=== PATIENT | male | born 1975 | race Caucasian/White ===

== ENCOUNTER 2022-02-10 16:54 | Emergency (ER) | payer MEDICARE ==
[2022-02-10 17:13] VITALS: BP 147/87
[2022-02-10] MEDS ORDERED: LIDOCAINE 2% 10 ML MDV SUBQ ONE (17:51)
[2022-02-10] MEDS ORDERED: lidocaine 1% 20 ML MDV ONE (18:09)
[2022-02-10] MEDS ORDERED: BACITRACIN ZINC OINT 1 PACKET TOP STA (18:24)
[2022-02-10] MEDS ORDERED: TETANUS/DIPHTHERIA/PERTUSSIS 0.5 ML SYRINGE IM ONE (18:25)
--- NOTE | 2022-02-10 18:26 | ED Physician Documentation ---
PD HPI UPPER EXT INJURY - Stated complaint Stated Complaint: L INDEX FINGER LAC - Chief complaint Chief Complaint: Laceration - History obtained from History obtained from: Patient - History of Present Illness Location: Left, Finger (Index) Type of injury: Laceration Where injury occurred: Home Timing - onset: Today Pain level max: 3 Pain level now: 2 Associated symptoms: No: Weakness, Numbness, Tingling, Swelling, Discolored Contributing factors: No: Anticoagulated - Additonal information Additional information: 46-year-old male with a left index finger laceration on a homemade knife. unknown last tetanus. Patient is right-handed. Nothing makes it better or worse. The laceration is to the pad of the index finger. Patient is not on blood thinners. No numbness or tingling. Review of Systems Constitutional: denies: Fever PD PAST MEDICAL HISTORY - Past Medical History Past Medical History: Yes Cardiovascular: High cholesterol - Past Surgical History Past Surgical History: Yes Ortho: Arthroscopic surgery - Present Medications Home Medications: Ambulatory Orders Medication Instructions Recorded Confirmed Cephalexin [Keflex] 500 mg PO Q6HR 10 Days capsule 02/16/15 oxyCODONE/ACET 5/325 [Percocet 5 1 each PO Q4-6H PRN #1 tablet 02/16/15 mg/325 mg] - Allergies Allergies/Adverse Reactions: Allergies Allergy/AdvReac Type Severity Reaction Status Date / Time Penicillins Allergy Anaphylaxis Verified 02/16/15 18:35 - Social History Does the pt smoke?: Yes Smoking Status: Current every day smoker Does the pt drink ETOH?: Yes Does the pt have substance abuse?: No - Immunizations Immunizations are current?: Yes - POLST Patient has POLST: No PD ED PE NORMAL - Vitals Vital signs reviewed: Yes - General General: Alert and oriented X 3, No acute distress - HEENT HEENT: Moist mucous membranes - Neck Neck: Supple, no meningeal sign - Derm Derm: Warm and dry - Extremities Extremities: Other (L index finger - 1.5cm L shaped laceration to pad of finger. NVI. ) - Neuro Neuro: Alert and oriented X 3 - Psych Psych: Normal mood, Normal affect Results - Vitals Vitals: Vital Signs - 24 hr 02/10/22 17:11 Temperature 37.0 C Heart Rate 94 Respiratory 16 Rate Blood Pressure 147/87 H O2 Saturation 98 Oxygen O2 Source Room air Procedures - Laceration (location) L index finger Length in cm: 1.5 Wound type: Curved, Into subcut fat, Clean Neurovascular status: Sensory intact, Motor intact, Vascular intact Tendon involvement: Tendon intact Anesthesia: Lidocaine 2% (digital block) Wound preparation: Chlorhexadine, Irrigated copiously NS, Wound explored, To the base Skin layer closure: Nylon, Interrupted, Size #-0 - enter number (4) Other: Patient tolerated well, No complications, Neurovascular intact, Dressing applied, Tetanus booster given PD MEDICAL DECISION MAKING - ED course Complexity details: considered differential, d/w patient ED course: Laceration repaired. Tolerated well. Tdap given. Neurovascular intact. Warnings of infection and instructions on wound care given at bedside. Patient counseled regarding signs and symptoms for which I believe and urgent re- evaluation would be necessary. Patient with good understanding of and agreement to plan and is comfortable going home at this time This document was made in part using voice recognition software. While efforts are made to proofread this document, sound alike and grammatical errors may occur. Departure - Departure Disposition: 01 Home, Self Care Clinical Impression: Laceration of index finger Qualifiers: Encounter type: initial encounter Damage to nail status: without damage Foreign body presence: without foreign body Laterality: left Qualified Code(s): S61.211A - Laceration without foreign body of left index finger without damage to nail, initial encounter Condition: Good Instructions: ED Laceration Ext Sutr Stap Tape Follow-Up: Nedra Montejo ARNP [Primary Care Provider] - Comments: The sutures will need to be removed in approximately 10 to 14 days. This can be done here or with your doctor. Keep the wound clean. Return if you worsen. Return if you notice redness, swelling or drainage from the wound. The finger cage will help to prevent the area from being bumped and reinjured. You were given a tetanus shot today. Discharge Date/Time: 02/10/22 18:34
== END 2022-02-10 18:34 | disposition home or self-care (01) ==
LOC: ED 16:54
DX: S61.211A Laceration without foreign body of left index finger without damage to nail, initial encounter (principal); F17.200 Nicotine dependence, unspecified, uncomplicated; W26.0XXA Contact with knife, initial encounter; Z23 Encounter for immunization; Z71.85 Encounter for immunization safety counseling
CPT/HCPCS: 12001; 90471; 90715; 99283; A9270